=== PATIENT | male | born 1970 | race Caucasian/White ===

== ENCOUNTER → 2019-07-23 12:32 | Outpatient (BNVA) | payer MEDICARE, SELFPAY | PROVIDERS: Family Provider Family Medicine; PCP Family Medicine; Visit Provider Psychiatry & Neurology Psychiatry | DX: R41.9 Unspecified symptoms and signs involving cognitive functions and awareness (principal); F33.42 Major depressive disorder, recurrent, in full remission; F17.210 Nicotine dependence, cigarettes, uncomplicated | CPT/HCPCS: 99213 ==

== ENCOUNTER → 2019-08-08 10:28 | Outpatient (BNVA) | payer MEDICARE, SELFPAY | PROVIDERS: Family Provider Family Medicine; PCP Family Medicine; Visit Provider Anesthesiology | DX: G89.29 Other chronic pain (principal); M79.641 Pain in right hand; M79.642 Pain in left hand; M79.671 Pain in right foot; M79.672 Pain in left foot; M79.674 Pain in right toe(s); M51.16 Intervertebral disc disorders with radiculopathy, lumbar region; G70.9 Myoneural disorder, unspecified; F17.210 Nicotine dependence, cigarettes, uncomplicated; Z79.891 Long term (current) use of opiate analgesic | CPT/HCPCS: 99214 ==

== ENCOUNTER 2019-08-11 07:44 | Day surgery (SDC) | payer MEDICARE, SELFPAY ==
[2019-08-08 10:43] VITALS: BMI 28.8
--- NOTE | 2019-08-11 07:51 | ANES.PREANE2 ---
Pre-Anesthetic Assessment Pre-Anesthetic Assessment: Height/Weight: Height 1.88 m Weight 101.605 kg Preop Diagnosis: Hematochezia Proposed Procedure: Operation Date: 08/11/19 09:30 Proposed Procedures p Colonoscopy 01331 K92.1(Not Applicable) - Diego Villalobos MD Familial anesthetic complications: None Was Beta Lizzy taken within 24 hours: N/A Last intake: NPO > 8 hrs Social: Social History: Tobacco Packs per day: 1-2 cigarettes a month Exam: Pre-Anes Outpt Exam: alert, oriented x 3, clear to auscultation bilaterally and regular rate & rhythm Airway: Cervical ROM: WNL MP: 4 Additional comments: missing front teeth Pulmonary: Pulmonary: None reported CV/HEM: CV/HEM: None reported : : None reported Comments: kidney stones Hepatic: Hepatic: None reported GI: GI: GERD Metabolic: Metabolic: None reported Musc/skel: Musc/skel: Fibromyalgia Comments: hand and foot pain (neuropathy r hand and R foot) Neuropsych: Neuropsych: Neuropathy Anesthetic Plan: ASA status: 2 Anesthesia: MAC Risk of > 500 ml blood loss (7ml/kg in children): No PFSH Anesthesia PFSH: Medical History (Updated 08/08/19 @ 12:02 by Dave Collier MD) Chronic hand pain RIGHT Chronic toe pain, right foot Cigarette nicotine dependence Depression, major, recurrent, in complete remission Encounter for long-term opiate analgesic use Intervertebral disc disorders with radiculopathy, lumbar region Neuromyopathy Unspecified symptoms and signs involving cognitive functions and awareness Social History (Updated 08/08/19 @ 11:13 by Lexii De Jesus LPN) Smoking and tobacco status: current some day smoker cigarettes Quit status (tobacco): not considering quitting Second hand smoke exposure: Yes Alcohol intake: never Marital status: Number of children: 2 History of recent travel: No Current gender identity: Male Data Anesthesia Cardiac Studies: No Data to Display
[2019-08-11 08:23] VITALS: BP 160/102; PULSE 65; RESP 18; TEMP 36.8; O2SAT 94
[2019-08-11] MEDS: sodium chloride 0.9% 1,000 ML 30 ML (08:25)
--- NOTE | 2019-08-11 08:55 | W.PM.OPSUD ---
Surgery/Procedure H&P Update DATE OF PROCEDURE: August 11, 2019 DATE H&P PERFORMED: 08/06/19 PREOP DIAGNOSIS: c PLANNED PROCEDURE: Operation Date: 08/11/19 09:30 Proposed Procedures p Colonoscopy(Not Applicable) - Diego Villalobos MD
[2019-08-11 10:14] VITALS: BP 130/86; PULSE 81; RESP 16; TEMP 37.2; O2SAT 93
[2019-08-11 10:24] VITALS: BP 144/93; PULSE 66; RESP 16; O2SAT 97
[2019-08-11 10:32] VITALS: BP 150/96; PULSE 68; RESP 16; O2SAT 97
== END 2019-08-11 10:45 | disposition home or self-care (01) ==
PROVIDERS: Family Provider Family Medicine; PCP Family Medicine; Visit Provider Internal Medicine
PROC: 0DJD8ZZ Inspection of Lower Intestinal Tract, Via Natural or Artificial Opening Endoscopic (ICD-10-PCS; CPT 45378; principal; 2019-08-11 09:30)
DX: K92.1 Melena (principal); F17.210 Nicotine dependence, cigarettes, uncomplicated; K21.9 Gastro-esophageal reflux disease without esophagitis; M79.7 Fibromyalgia
CPT/HCPCS: 12345; 45378; J2001; J2704; J7030

== ENCOUNTER → 2019-11-11 09:50 | Outpatient (BNVA) | payer MEDICARE, SELFPAY | PROVIDERS: Family Provider Family Medicine; PCP Family Medicine; Visit Provider Anesthesiology | DX: G89.29 Other chronic pain (principal); M79.641 Pain in right hand; M79.642 Pain in left hand; M51.16 Intervertebral disc disorders with radiculopathy, lumbar region; M54.2 Cervicalgia; M79.674 Pain in right toe(s); G70.9 Myoneural disorder, unspecified; Z79.891 Long term (current) use of opiate analgesic | CPT/HCPCS: 99214 ==

== ENCOUNTER → 2019-11-19 07:33 | Outpatient (BNVA) | payer MEDICARE, SELFPAY | PROVIDERS: Family Provider Family Medicine; PCP Family Medicine; Visit Provider Psychiatry & Neurology Psychiatry | DX: F33.42 Major depressive disorder, recurrent, in full remission (principal); R41.9 Unspecified symptoms and signs involving cognitive functions and awareness; F17.210 Nicotine dependence, cigarettes, uncomplicated | CPT/HCPCS: 99213 ==

== ENCOUNTER → 2019-12-30 09:25 | Outpatient (BNVA) | payer MEDICARE, SELFPAY | PROVIDERS: Family Provider Family Medicine; PCP Family Medicine; Visit Provider Anesthesiology | DX: G89.29 Other chronic pain (principal); M79.641 Pain in right hand; M79.642 Pain in left hand; M51.16 Intervertebral disc disorders with radiculopathy, lumbar region; M54.2 Cervicalgia; G70.9 Myoneural disorder, unspecified; Z79.891 Long term (current) use of opiate analgesic | CPT/HCPCS: 99214 ==

== ENCOUNTER → 2020-02-13 07:38 | Outpatient (BNVA) | payer MEDICARE, SELFPAY | PROVIDERS: Family Provider Family Medicine; PCP Family Medicine; Visit Provider Psychiatry & Neurology Psychiatry | DX: F33.42 Major depressive disorder, recurrent, in full remission (principal); R41.9 Unspecified symptoms and signs involving cognitive functions and awareness; F17.210 Nicotine dependence, cigarettes, uncomplicated; F90.2 Attention-deficit hyperactivity disorder, combined type | CPT/HCPCS: 99213 ==

== ENCOUNTER → 2020-03-09 09:11 | Outpatient (BNVA) | payer MEDICARE, SELFPAY | PROVIDERS: Family Provider Family Medicine; PCP Family Medicine; Visit Provider Nurse Practitioner | DX: G89.29 Other chronic pain (principal); M79.641 Pain in right hand; M79.642 Pain in left hand; M51.16 Intervertebral disc disorders with radiculopathy, lumbar region; M54.2 Cervicalgia; G70.9 Myoneural disorder, unspecified; F17.210 Nicotine dependence, cigarettes, uncomplicated; Z79.891 Long term (current) use of opiate analgesic; Z71.6 Tobacco abuse counseling | CPT/HCPCS: 99213 ==

== ENCOUNTER → 2020-04-21 09:58 | Outpatient (BNVA) | payer MEDICARE, SELFPAY | PROVIDERS: Family Provider Family Medicine; PCP Family Medicine; Visit Provider Anesthesiology | DX: G89.29 Other chronic pain (principal); M79.641 Pain in right hand; M79.642 Pain in left hand; M54.2 Cervicalgia; R29.898 Other symptoms and signs involving the musculoskeletal system; M51.16 Intervertebral disc disorders with radiculopathy, lumbar region; G70.9 Myoneural disorder, unspecified; F17.210 Nicotine dependence, cigarettes, uncomplicated; Z79.891 Long term (current) use of opiate analgesic | CPT/HCPCS: 99214 ==

== ENCOUNTER → 2020-05-24 08:18 | Outpatient (BNVA) | payer MEDICARE, SELFPAY | PROVIDERS: Family Provider Family Medicine; PCP Family Medicine; Visit Provider Psychiatry & Neurology Psychiatry | DX: F33.42 Major depressive disorder, recurrent, in full remission (principal); F17.210 Nicotine dependence, cigarettes, uncomplicated; R41.9 Unspecified symptoms and signs involving cognitive functions and awareness | CPT/HCPCS: 99213 ==

== ENCOUNTER 2020-06-09 12:50 | Emergency (ER) | payer MEDICARE, SELFPAY ==
--- NOTE | 2020-06-09 12:54 | XR_ITS ---
WS: [id number] Exam: XR KUB [id number] Date/Time of Exam: 06/09/2020 1:15 PM Reason For Exam: kidney stone Comparison 07/26/2016. No bowel obstruction or free air. Visualized organ margins are intact. Surgical clips in the right lo wer quadrant. Small calcification superimposing left kidney and probably represent renal calculi. Bon y structures are intact. XR/XR KUB [id number] IMPRESSION: 1. No acute abdominal finding. 2. Small calcification superimpose the left kidney and probably represent renal calculi.
[2020-06-09 13:05] VITALS: BP 177/104; PULSE 67; RESP 18; TEMP 36.5; O2SAT 96; BMI 26.2
[2020-06-09 13:09] VITALS: BP 178/114; PULSE 60; RESP 18; O2SAT 96
[2020-06-09 13:39] VITALS: BP 152/88; PULSE 70; RESP 14; O2SAT 94
--- NOTE | 2020-06-09 14:06 | ED_ITS ---
HPI - Abdominal Pain General: Chief Complaint: Abdominal Pain Stated Complaint: kidney stone pain Time Seen by Provider: 06/09/20 13:31 Source: patient and family Mode of arrival: ambulatory Limitations: no limitations History of Present Illness: HPI narrative: 50-year-old male patient presents to the emergency department with acute onset of right flank pain this morning at 4 AM. He reports trying to walk it out. His spouse reports he experienced hematuria last night. Patient reports trying to pass a kidney stone. Has experienced kidney stones in the past. Under the care of Dr. Sharp for kidney stone management. MD elicited complaint: abdominal pain and flank pain (rt) Pertinent past history: kidney stones Onset (ago): day(s) (1) Pain Consistency: intermittent Location: R flank and Pelvis Severity: moderate Quality: stabbing and sharp Radiation: R flank Migration to: suprapubic Exacerbating factors: nothing Associated Symptoms: Reports hematuria, nausea and other (hematuria); Denies chills, constipation, diarrhea, dysuria, fever(s) and vomiting Review of Systems General: Reports: 10 or more systems reviewed and unremarkable except in HPI and below Const: Denies: fever(s), chills, body aches, fatigue, malaise or diaphoresis Eyes: Denies: blurry vision or eye redness ENMT: Denies: throat pain, dental pain or disequilibrium Card: Denies: chest pain, palpitations, irregular heart rhythm, swelling of feet/ankles or dyspnea on exertion Resp: Denies: dyspnea, productive cough, non-productive cough or wheezing GI: Reports: abdominal pain (rt flank) and nausea; Denies: vomiting, diarrhea or constipation : Reports: flank pain and hematuria; Denies: difficulty urinating, dysuria, urinary urgency or difficulty starting urination Musc: Denies: neck pain, back pain or joint pain Skin/Breast: Denies: rash or pruritus Neuro: Denies: headache(s), weakness in extremities or behavioral changes Psych: Denies: anxiety or depression Quincy/Lymph: Denies: easy bruising PFS ED PFSH: Medical History (Updated 06/09/20 @ 16:30 by CELINA Holt) Chronic hand pain RIGHT Chronic toe pain, right foot Cigarette nicotine dependence Depression, major, recurrent, in complete remission Encounter for long-term opiate analgesic use Intervertebral disc disorders with radiculopathy, lumbar region Neuromyopathy Unspecified symptoms and signs involving cognitive functions and awareness Family History Other CAD (coronary artery disease) Cancer Clotting disorder Diabetes Hypertension Stroke Social History Smoking and tobacco status: former smoker Quit status (tobacco): not considering quitting Second hand smoke exposure: Yes Alcohol intake: never Marital status: Number of children: 2 History of recent travel: No Current gender identity: Male Physical Exam Const: COMMON NORMALS: no acute distress, average body habitus, patient oriented x3, healthy appearing, alert and well nourished GENERAL APPEARANCE: cooperative, well kempt, well developed, anxious and well hydrated; not comfortable and not ill appearing NUTRITIONAL APPEARANCE: overweight ORIENTATION/CONSCIOUSNESS: Yes awake, Yes oriented to person, Yes oriented to place and Yes oriented to time HENMT: COMMON NORMALS: normocephalic, atraumatic, Normal external nose present and moist oral mucous membranes HEAD & SCALP: normal to inspection, normocephalic and atraumatic NOSE: Normal external nose present Eye: COMMON NORMALS: Equal, round and reactive pupils present and EOMs intact bilaterally GENERAL EYE: appearance normal, both eyes and all related structures PUPIL: Yes Equal, round and reactive pupils present Neck/C-Spine: COMMON NORMALS: full ROM, no lymphadenopathy and supple GENERAL: Yes normal visual inspection and Yes trachea midline CERVICAL SPINE: Yes cervical ROM normal Lymph: LYMPHATIC: no lymphadenopathy noted Chest: COMMONS NORMALS: normal inspection of the chest and normal palpation of entire chest wall Resp: COMMON NORMALS: normal respiratory effort, No retractions, No use of accessory muscles and clear to auscultation bilaterally EFFORT & INSPECTION: Yes able to speak in complete sentences AUSCULTATION: clear to auscultation bilaterally Cardio: COMMON NORMALS: regular rhythm, S1 normal heart sound present, S2 normal heart sound present and Peripheral pulses 2+ throughout RHYTHM: regular rhythm HEART SOUNDS: S1 normal heart sound present and S2 normal heart sound present PERIPHERAL PULSES: Peripheral pulses 2+ throughout GI: COMMON NORMALS: Normal to inspection, nondistended, normoactive bowel sounds present and Soft to palpation INSPECTION: Yes normal to inspection PALPATION: Yes Soft to palpation, Yes Firmness to palpation present (GI) and Yes Tenderness to palpation present (GI) (rt flank) : BLADDER/KIDNEY EXAM: Yes CVA tenderness on the right Back/Pelvis: COMMON NORMALS: thoracic and lumbar spine normal to inspection Extremity: COMMON NORMALS: normal to inspection and capillary refill normal Neuro: COMMON NORMALS: patient oriented x3 and no focal motor deficits SENSORIUM/ORIENTATION: Yes alert, Yes oriented to person, Yes oriented to place and Yes oriented to time Psych: COMMON NORMALS: mental status grossly normal, Normal thought process present and cooperative APPEARANCE: Yes well kempt ACTIVITY/MOTOR BEHAVIOR: Yes appropriate eye contact THOUGHT PROCESS: Normal thought process present Skin: COMMON NORMALS: no rashes or lesions noted and turgor normal GENERAL SKIN EXAM: no rashes or lesions noted and turgor normal Course Consultations: Consultation #1: Spoke with Dr. Sharp regarding concerning CT findings and 4 mm stone in the proximal ureter. Advised control patient's pain, recommend antibiotics due to elevated white blood count, advised patient to contact office in the morning if pain continues to be problematic during the night, advised n.p.o. after 7 AM for possible stent placement tomorrow morning. Requested PCR screen through [facility] in the event patient does have need for surgical intervention tomorrow. If patient does well, will need follow-up in the office next week. I also discussed with Dr. Sharp findings of right upper lobe liver mass. Pain patient is experiencing today is from 4 mm right proximal stone. Time: 16:15 Vital Signs: Vital signs: Vital Signs Temperature 97.7 F 06/09/20 13:05 Pulse Rate 70 06/09/20 14:09 Respiratory Rate 16 06/09/20 14:09 Blood Pressure 152/88 06/09/20 14:09 Pulse Oximetry 94 06/09/20 14:09 MDM - Abdominal Pain MDM Narrative: Medical decision making narrative: 50-year-old male patient presents to the emergency department with right flank pain. Onset hematuria last night with onset of flank pain this morning. 4 mm stone proximal ureter identified on CT scan completed here today. Also of note was hyperdensity versus mass of the right upper lobe of the liver measuring 2.5 cm. MRI outpatient order completed with referral to delinquency prevention social worker, results will be sent to Dr. Horan, patient's primary care provider. Discussion with the patient regarding abnormality completed. I also discussed my conversation with Dr. Sharp and plan of care with the patient and his spouse. Patient will be started on Cipro due to possible urinary tract infection since white blood count is 14,000. Flomax initiated, additional prescription of Percocet provided as patient is under the care of pain management with Dr. Hogan, increased Percocet dosing will be needed secondary to renal colic. Case discussed with Dr. Desai, ED physician who provided Percocet prescription. Pain was controlled here in the ED with Dilaudid and Zofran. Patient agrees to contact Dr. Sharp's office in the morning with n.p.o. status at 7 AM if worsening symptoms of pain occur. If patient does okay through the night, may follow-up with Dr. Sharp's nurse practitioner next week. Covid screen completed as patient may have surgical intervention tomorrow. Lab Data: Labs: Lab Results 06/09/20 06/09/20 06/09/20 Range/Units 13:18 14:40 14:40 WBC 14.0 H (4.0-10.0) 10^3/ uL RBC 5.31 H (4.1-5.3) 10^6/u L Hgb 15.1 (11.7-16.6) g/dL Hct 46.9 (42.0-52.0) % MCV 88.3 (80-94) fL MCH 28.4 (28.0-34.0) pg MCHC 32.2 (30.0-36.0) g/dL RDW 12.4 (12.1-15.1) % Plt Count 274 (130-400) 10^3/c mm MPV 10.3 (7.4-10.4) fL Neut % (Auto) 87.5 % Lymph % (Auto) 5.3 % Sandoval % (Auto) 6.3 % Eos % (Auto) 0.0 % Baso % (Auto) 0.5 % Neut # (Auto) 12.26 H (1.8-7.7) 10^3/u L Lymph # (Auto) 0.8 (0.8-4.8) 10^3/u L Sandoval # (Auto) 0.9 (0.2-0.9) 10^3/u L Eos # (Auto) 0.0 (0.0-0.8) 10^3/u L Baso # (Auto) 0.1 (0.0-0.1) 10^3/u L Nucleated RBC % (a uto) 0 % Nucleated RBCs # 0.0 /100WBC Sodium 140 (136-145) mmol/L Potassium 4.1 (3.5-5.1) mmol/L Chloride 103 (98-107) mmol/L Carbon Dioxide 25 (22-29) mmol/L Anion Gap 16.1 (5-19) BUN 17 (6-20) mg/dL Creatinine 1.8 H (0.7-1.2) mg/dL GFR Calculation 40.1 L (90-130) mL/min Glucose 125 H (65-115) mg/dL Calculated Osmolal ity 293 (285-295) mOsm/k g Calcium 9.2 (8.5-10.5) mg/dL Total Bilirubin 0.4 (0.15-1.2) mg/dL AST 25 (0-40) U/L ALT 37 (0-41) U/L Alkaline Phosphata se 101 (40-130) IU/L Total Protein 7.1 (6.6-8.7) g/dL Albumin 4.5 (3.5-5.2) g/dL Globulin 2.6 (1.3-4.6) g/dL Urine Color Yellow (Yellow) Urine Appearance Cloudy (CLEAR) Urine pH 5 (5-7) Ur Specific Gravit y 1.025 (1.005-1.030) Urine Protein Trace (Negative) Urine Glucose (UA) Norm (Normal) Urine Ketones 1+ H (Negative) Urine Blood 3+ H (Negative) Urine Nitrate Negative (Negative) Urine Bilirubin Neg (Negative) Urine Urobilinogen Norm (Negative) mg/dL Ur Leukocyte Lisa ase Negative (Negative) Urine RBC 50-80 H (0-2) /hpf Urine WBC None (0-5) /hpf Ur Squamous Epith Cells 0-4 H (0-5) /hpf Amorphous Sediment 4+ /hpf Urine Bacteria 2+ H (NONE) /hpf Imaging Data ^: Other Xray: Radiologist's impression: [address] [address] XRay Report Signed Patient: Reggie Dennis #: [id number] : 1970Acct#:[id number] Age/Sex: 50 / MADM Date: 06/09/20 Loc: ERRoom/Bed: Attending Dr: Ordering Provider/Ordering MD: Rossana Lopez Date of Service: 06/09/20 Procedure(s): XR KUB [id number] Accession Number(s): [id number] Report Number: [id number] WS: [id number] Exam: XR KUB [id number] Date/Time of Exam: 06/09/2020 1:15 PM Reason For Exam: kidney stone Comparison 07/26/2016. No bowel obstruction or free air. Visualized organ margins are intact. Surgical clips in the right lower quadrant. Small calcification superimposing left kidney and probably represent renal calculi. Bony structures are intact. XR/XR KUB [id number] IMPRESSION: 1. No acute abdominal finding. 2. Small calcification superimpose the left kidney and probably represent renal calculi. Dictated By:Juan Ramon Saavedra DO Signed By:Kulwinder Bradshaw Date/Time:06/09/20 1401 DD/ 1400 CT Abd/Pel: Radiologist's impression: [place] [address] CT Scan Report Signed Patient: Reggie Dennis #: [id number] : 1970Acct#:[id number] Age/Sex: 50 / MADM Date: 06/09/20 Loc: ERRoom/Bed: Attending Dr: Ordering Provider/Ordering MD: Rossana Lopez Date of Service: 06/09/20 Procedure(s): CT kidney stone [id number] Accession Number(s): [id number] Report Number: [id number] PROCEDURE INFORMATION: Exam: CT Abdomen And Pelvis Without Contrast Exam date and time: 06/09/2020 2:33 PM Age: 50 years old Clinical indication: Abdominal pain; Flank; Right; Additional info: Kidney stone (rt flank pain) TECHNIQUE: Imaging protocol: Computed tomography of the abdomen and pelvis without contrast. Radiation optimization: All CT scans at this facility use at least one of these dose optimization techniques: automated exposure control; mA and/or kV adjustment per patient size (includes targeted exams where dose is matched to clinical indication); or iterative reconstruction. COMPARISON: CT Abdomen/Pelvis Renal [id number] 02/04/2018 4:43 PM RADIATION DOSE METRICS: Total DLP (mGy-cm): 1824.4 FINDINGS: Liver: Hepatic steatosis. Relatively hyperdense region versus mass in the right lobe of the liver estimated at 2.5 cm (series 602, image 34). Gallbladder and bile ducts: Unremarkable. No ductal dilation. Pancreas: Normal. No ductal dilation. Spleen: Normal. No splenomegaly. Adrenal glands: Normal. No mass. Kidneys and ureters: 4 mm proximal right ureteral calculus located approximately at the level of the L 3 4 interspace. Minimal right hydronephrosis and right perinephric edema. Bilateral renal calculi. Stomach and bowel: No acute findings. No obstruction. No mucosal thickening. Appendix: Appendectomy. Intraperitoneal space: Unremarkable. No free air. No significant fluid collection. Vasculature: No abdominal aortic aneurysm. Lymph nodes: No significant adenopathy. Urinary bladder: Unremarkable as visualized. Reproductive: Unremarkable as visualized. Bones/joints: No acute findings. Soft tissues: Unremarkable. CT/CT kidney stone [id number] IMPRESSION: 4 mm proximal right ureteral calculus, right hydronephrosis. Bilateral renal calculi. Hepatic steatosis, possible right lobe liver lesion. Recommend follow-up multiphasic contrast enhanced MRI or multiphasic contrast enhanced CT. Radiation Dose CTDIVOL = (mGy): DLP = 1824.4 (mGy-cm) Dictated By:Chacho Johnson MD Signed By:Chacho Johnsonigned Date/Time:06/09/20 1523 Discharge Plan Discharge Patient Disposition: Home Clinical Impression: Renal lithiasis, Liver mass, right lobe, Flank pain, acute Condition: Stable Prescriptions: New Percocet 10-325 mg tablet 1 tab PO Q4H PRN (Reason: pain) Qty: 14 RF: 0 Flomax 0.4 mg capsule 0.4 mg PO Q24H Qty: 20 RF: 0 ciprofloxacin HCl 500 mg tablet 500 mg PO BID Qty: 20 RF: 0 Zofran 4 mg tablet 4 mg PO Q4H 5 Days Qty: 14 RF: 0 No Action pantoprazole 40 mg tablet,delayed release (DR/EC) 40 mg PO DAILY Qty: 90 RF: 3 oxycodone-acetaminophen [Percocet] 10-325 mg tablet 1 tab PO .5 times a day PRN (Reason: pain) 30 Days Qty: 150 RF: 0 oxycodone-acetaminophen [Percocet] 10-325 mg tablet 1 tab PO .5 times a day PRN (Reason: pain) 30 Days Qty: 150 RF: 0 buspirone 30 mg tablet 30 mg PO BID Qty: 60 RF: 11 mirtazapine 45 mg tablet 45 mg PO DAILY Qty: 30 RF: 11 Discharge Orders: Discharge ED (Routine); Ordered 06/09/20 Ordered By: Rossana Lopez Referrals: Jann Horan MD [Primary Care Provider] - Discharge Diet: Usual diet Discharge Activity: Resume usual activity Patient Instructions: Kidney Stones (ED), How to Strain Your Urine (ED), Abdominal Pain (ED), Flank Pain (ED) Activity Restrictions/Additional Instructions: Push fluids, drink lots of fluids Start Flomax tomorrow, 06/10/2020, you have received your first dose here in the ED If you continue to have severe pain during the night, you will need to refrain from eating or drinking after 7 AM. You will then need to call Dr. Sharp's office at 8 AM to let them know you are not better. Further instruction will then be given to you. Covid testing was completed today due to potential surgical intervention that may be needed tomorrow. Take Cipro until gone, even if feeling better If you are better, you will need a follow-up appointment with Dr. Sharp's office next week. automotive services manager will call and schedule you an appointment for next week. MRI will be needed of your liver, delinquency prevention social worker will be contacting you with an appointment of your MRI. Results will be sent to Dr. Horan's office, your primary care provider, follow-up will be needed. Coding Level of Care Code ED [employer] for Andreina Fwd Exam Comprehensive
[2020-06-09 14:09] VITALS: BP 152/88; PULSE 70; RESP 16; O2SAT 94
--- NOTE | 2020-06-09 14:11 | CTR_ITS ---
PROCEDURE INFORMATION: Exam: CT Abdomen And Pelvis Without Contrast Exam date and time: 06/09/2020 2:33 PM Age: 50 years old Clinical indication: Abdominal pain; Flank; Right; Additional info: Kidney stone (rt flank pain) TECHNIQUE: Imaging protocol: Computed tomography of the abdomen and pelvis without contrast. Radiation optimization: All CT scans at this facility use at least one of these dose optimization techniques: automated exposure control; mA and/or kV adjustment per patient size (includes targeted exams where dose is matched to clinical indication); or iterative reconstruction. COMPARISON: CT Abdomen/Pelvis Renal [id number] 02/04/2018 4:43 PM RADIATION DOSE METRICS: Total DLP (mGy-cm): 1824.4 FINDINGS: Liver: Hepatic steatosis. Relatively hyperdense region versus mass in the right lobe of the liver estimated at 2.5 cm (series 602, image 34). Gallbladder and bile ducts: Unremarkable. No ductal dilation. Pancreas: Normal. No ductal dilation. Spleen: Normal. No splenomegaly. Adrenal glands: Normal. No mass. Kidneys and ureters: 4 mm proximal right ureteral calculus located approximately at the level of the L 3 4 interspace. Minimal right hydronephrosis and right perinephric edema. Bilateral renal calculi. Stomach and bowel: No acute findings. No obstruction. No mucosal thickening. Appendix: Appendectomy. Intraperitoneal space: Unremarkable. No free air. No significant fluid collection. Vasculature: No abdominal aortic aneurysm. Lymph nodes: No significant adenopathy. Urinary bladder: Unremarkable as visualized. Reproductive: Unremarkable as visualized. Bones/joints: No acute findings. Soft tissues: Unremarkable. CT/CT kidney stone [id number] IMPRESSION: 4 mm proximal right ureteral calculus, right hydronephrosis. Bilateral renal calculi. Hepatic steatosis, possible right lobe liver lesion. Recommend follow-up multiphasic contrast enhanced MRI or multiphasic contrast enhanced CT. Radiation Dose CTDIVOL = (mGy): DLP = 1824.4 (mGy-cm)
[2020-06-09] MEDS: ondansetron 2 mg/ML SDV 2 mL 4 MG IVP (14:54)
[2020-06-09] MEDS: morphine 4 mg/mL SDV 1 mL IVP (14:58)
[2020-06-09 15:06] LABS: Basophils # 0.1 10^3/uL (0.0-0.1); Basophils % 0.5 %; Hematocrit 46.9 % (42.0-52.0); Hemoglobin 15.1 g/dL (11.7-16.6); Lymphocytes # 0.8 10^3/uL (0.8-4.8); Lymphocytes % 5.3 %; Mean Corpuscular HGB Conc 32.2 g/dL (30.0-36.0); Mean Corpuscular Hemoglobin 28.4 pg (28.0-34.0); Mean Corpuscular Volume 88.3 fL (80-94); Mean Platelet Volume 10.3 fL (7.4-10.4); Monocytes # 0.9 10^3/uL (0.2-0.9); Monocytes % 6.3 %; Neutrophils # 12.26 10^3/uL (1.8-7.7); Neutrophils % 87.5 %; Nucleated Red Blood Cells % 0 %; Platelet Count 274 10^3/cmm (130-400); Red Blood Count 5.31 10^6/uL (4.1-5.3); Red Cell Distribution Width 12.4 % (12.1-15.1)
[2020-06-09 15:22] LABS: Albumin Level 4.5 g/dL (3.5-5.2); Alkaline Phosphatase 101 IU/L (40-130); Anion Gap 16.1 (5-19); Aspartate Amino Transferase 25 U/L (0-40); Blood Urea Nitrogen 17 mg/dL (6-20); Calcium 9.2 mg/dL (8.5-10.5); Carbon Dioxide 25 mmol/L (22-29); Chloride 103 mmol/L (98-107); Globulin 2.6 g/dL (1.3-4.6); Glomerular Filtration Rate 40.1 mL/min (90-130); Glucose 125 mg/dL (65-115); Osmolality Calculated 293 mOsm/kg (285-295); Potassium 4.1 mmol/L (3.5-5.1); Sodium 140 mmol/L (136-145); Total Bilirubin 0.4 mg/dL (0.15-1.2); Total Protein 7.1 g/dL (6.6-8.7)
[2020-06-09 15:34] LABS: Add Urine Microscopic? YES; Bilirubin Urine Neg (Negative); Blood Urine 3+ (Negative); Glucose Urine UA Norm (Normal); Ketones Urine 1+ (Negative); Leukocyte Esterase Urine Negative (Negative); Nitrate Urine Negative (Negative); Protein Urine Trace (Negative); Specific Gravity, Urine 1.025 (1.005-1.030); Urine Appearance Cloudy (CLEAR); Urine Color Yellow (Yellow); Urobilinogen Urine Norm (Negative); pH Urine 5 (5-7)
[2020-06-09 15:39] LABS: Bacteria Urine 2+ /hpf; RBC Urine 50-80 /hpf (0-2); Squamous Epithelial Cell Urine 0-4 /hpf (0-5)
[2020-06-09 15:40] LABS: Add Urine Culture? Yes; Amorphous Sediment Urine 4+ /hpf
[2020-06-09] MEDS: HYDROmorphone 1 mg/mL INJ 1 mL 0.5 MG IVP ×2 (15:46→16:57)
[2020-06-09 17:21] LABS: Alanine Aminotransferase 37 U/L (0-41)
--- NOTE | 2020-06-10 08:51 | DCPLANNER ---
catering operations manager had message to schedule a follow up appointment for patient with Dr. Sharp. catering operations manager called the office of Dr. Sharp, spoke with Geni, gave clinic patients information. catering operations manager was told that patients information would be printed and reviewed. Clinic will call patient with appointment information.
--- NOTE | 2020-06-14 11:34 | DCPLANNER ---
homeowner association manager had message to schedule a follow up, out patient MRA / MRI. homeowner association manager faxed order to centralized scheduling, will call for appointment information.
--- NOTE | 2020-06-14 14:03 | DCPLANNER ---
quality assurance practice manager called the office of Dr. Sharp to confirm that a follow up appointment had been scheduled for patient. quality assurance practice manager spoke with Alissa, was told that clinic called and spoke with patients . A message was left for patient to call clinic and schedule a follow up appointment.
--- NOTE | 2020-06-22 08:41 | DCPLANNER ---
Patient had an MRI/MRA scheduled for 06.22.20 - patient did attend appointment.
== END 2020-06-09 17:32 | disposition home or self-care (01) ==
PROVIDERS: Emergency Provider Nurse Practitioner Family; PCP Family Medicine
DX: N20.0 Calculus of kidney (principal); R16.0 Hepatomegaly, not elsewhere classified; Z87.891 Personal history of nicotine dependence
CPT/HCPCS: 12345; 74018; 74176; 80053; 81001; 85025; 87086; 96374; 96375; 96376; 99283; J1170; J2270; J2405

== ENCOUNTER → 2020-06-16 16:07 | Outpatient (BNVA) | payer MEDICARE, SELFPAY | PROVIDERS: PCP Family Medicine; Visit Provider Nurse Practitioner Family | DX: N20.0 Calculus of kidney (principal) | CPT/HCPCS: 88300 ==

== ENCOUNTER 2020-06-22 08:27 | Outpatient (CLI) | payer MEDICARE, SELFPAY ==
--- NOTE | 2020-06-22 08:39 | MR_ITS ---
WS: [id number] INDICATION: Possible liver lesion TECHNIQUE: MRI of the abdomen without and with gadolinium enhancement. Axial T2, axial T2 fiesta, cor onal 2-D fiesta, axial T1 fat sat, and post gadolinium imaging was obtained. FINDINGS: CT June 09, 2020 reviewed. Diffuse fatty infiltration right hepatic lobe. Previously described le michelle in the right hepatic lobe likely represents focal fatty sparing with geographic perfusion. No santos spicious lesions. Tiny cyst undersurface right hepatic lobe measuring 4 mm. No intrahepatic biliary d uctal dilatation. Normal pancreas. Normal pancreatic head. Normal common bile duct. Normal pancreatic duct. Adrenal gla nds are normal. Small 8 mm right adrenal adenoma. Tiny left renal cyst. Normal spleen. Normal GE junction. No hydronephrosis in either kidney. MR/MR abdomen wo/w con* [id number] IMPRESSION: 1. Diffuse fatty infiltration of the right hepatic lobe. 2. No suspicious hepatic lesions. Previously described lesion seen on CT likel y due to focal fatty sparing. 3. No intrahepatic biliary ductal dilatation. 4. Normal gallbladder. 5. 8 mm adrenal adenoma. 6. No other significant findings.
== END 2020-06-22 08:28 | disposition home or self-care (01) ==
LOC: RADSHAW 08:30
PROVIDERS: PCP Family Medicine; Visit Provider Nurse Practitioner Family
DX: K76.9 Liver disease, unspecified (principal); D35.00 Benign neoplasm of unspecified adrenal gland; K76.0 Fatty (change of) liver, not elsewhere classified
CPT/HCPCS: 74183; A9579

== ENCOUNTER 2020-07-06 07:58 | Outpatient (CLI) | payer MEDICARE, SELFPAY ==
[2020-07-06 09:13] LABS: Alanine Aminotransferase 39 U/L (0-41); Albumin Level 4.8 g/dL (3.5-5.2); Alkaline Phosphatase 108 IU/L (40-130); Anion Gap 13.6 (5-19); Aspartate Amino Transferase 27 U/L (0-40); Blood Urea Nitrogen 15 mg/dL (6-20); Calcium 10.6 mg/dL (8.5-10.5); Carbon Dioxide 28 mmol/L (22-29); Chloride 100 mmol/L (98-107); Globulin 3.2 g/dL (1.3-4.6); Glomerular Filtration Rate 58.4 mL/min (90-130); Glucose 119 mg/dL (65-115); Osmolality Calculated 286 mOsm/kg (285-295); Potassium 4.6 mmol/L (3.5-5.1); Sodium 137 mmol/L (136-145); Total Bilirubin 0.3 mg/dL (0.15-1.2)
[2020-07-08 20:39] LABS: Plasma Renin Activity LC/MS/MS 3.35 ng/mL/h (0.25-5.82)
== END 2020-07-06 07:59 | disposition home or self-care (01) ==
PROVIDERS: PCP Family Medicine; Visit Provider Family Medicine
DX: E27.8 Other specified disorders of adrenal gland (principal); K76.0 Fatty (change of) liver, not elsewhere classified
CPT/HCPCS: 36415; 80053; 82088; 84244

== ENCOUNTER → 2020-07-07 07:37 | Outpatient (BNVA) | payer MEDICARE, SELFPAY | PROVIDERS: PCP Family Medicine; Visit Provider Psychiatry & Neurology Psychiatry | DX: F33.42 Major depressive disorder, recurrent, in full remission (principal); F17.210 Nicotine dependence, cigarettes, uncomplicated; R41.9 Unspecified symptoms and signs involving cognitive functions and awareness | CPT/HCPCS: 99214 ==

== ENCOUNTER → 2020-07-09 07:58 | Outpatient (BNVA) | payer MEDICARE, SELFPAY | PROVIDERS: PCP Family Medicine; Visit Provider Anesthesiology | DX: M54.2 Cervicalgia (principal); R29.898 Other symptoms and signs involving the musculoskeletal system; Z79.891 Long term (current) use of opiate analgesic | CPT/HCPCS: 99213 ==

== ENCOUNTER → 2020-09-01 07:33 | Outpatient (BNVA) | payer MEDICARE, SELFPAY | PROVIDERS: PCP Family Medicine; Visit Provider Psychiatry & Neurology Psychiatry | DX: F33.42 Major depressive disorder, recurrent, in full remission (principal); F17.210 Nicotine dependence, cigarettes, uncomplicated; R41.9 Unspecified symptoms and signs involving cognitive functions and awareness | CPT/HCPCS: 99213 ==

== ENCOUNTER → 2020-09-09 08:54 | Outpatient (BNVA) | payer MEDICARE, SELFPAY | PROVIDERS: PCP Family Medicine; Visit Provider Anesthesiology | DX: G89.29 Other chronic pain (principal); M79.641 Pain in right hand; G70.9 Myoneural disorder, unspecified; R29.898 Other symptoms and signs involving the musculoskeletal system; F17.210 Nicotine dependence, cigarettes, uncomplicated; Z79.891 Long term (current) use of opiate analgesic | CPT/HCPCS: 99213 ==

== ENCOUNTER → 2020-10-29 08:04 | Outpatient (BNVA) | payer MEDICARE, SELFPAY | PROVIDERS: PCP Family Medicine; Visit Provider Psychiatry & Neurology Psychiatry | DX: F33.42 Major depressive disorder, recurrent, in full remission (principal); F17.210 Nicotine dependence, cigarettes, uncomplicated; R41.9 Unspecified symptoms and signs involving cognitive functions and awareness | CPT/HCPCS: 99213 ==

== ENCOUNTER → 2020-11-11 10:27 | Outpatient (BNVA) | payer MEDICARE, SELFPAY | PROVIDERS: PCP Family Medicine; Visit Provider Anesthesiology | DX: G89.29 Other chronic pain (principal); M79.641 Pain in right hand; M79.642 Pain in left hand; R29.898 Other symptoms and signs involving the musculoskeletal system; G70.9 Myoneural disorder, unspecified; Z87.891 Personal history of nicotine dependence; Z79.891 Long term (current) use of opiate analgesic | CPT/HCPCS: 99213 ==

== ENCOUNTER → 2021-01-05 10:48 | Outpatient (BNVA) | payer MEDICARE, SELFPAY | PROVIDERS: PCP Family Medicine; Visit Provider Anesthesiology | DX: G89.29 Other chronic pain (principal); M51.16 Intervertebral disc disorders with radiculopathy, lumbar region; M79.641 Pain in right hand; M79.642 Pain in left hand; M79.671 Pain in right foot; M79.672 Pain in left foot; R29.898 Other symptoms and signs involving the musculoskeletal system; M79.674 Pain in right toe(s); G70.9 Myoneural disorder, unspecified; F17.210 Nicotine dependence, cigarettes, uncomplicated; Z79.891 Long term (current) use of opiate analgesic | CPT/HCPCS: 99214 ==

== ENCOUNTER → 2021-03-08 07:52 | Outpatient (BNVA) | payer MEDICARE, SELFPAY | PROVIDERS: PCP Family Medicine; Visit Provider Anesthesiology | DX: G89.29 Other chronic pain (principal); M51.16 Intervertebral disc disorders with radiculopathy, lumbar region; M79.641 Pain in right hand; M79.642 Pain in left hand; R29.898 Other symptoms and signs involving the musculoskeletal system; G70.9 Myoneural disorder, unspecified; Z87.891 Personal history of nicotine dependence; Z79.891 Long term (current) use of opiate analgesic | CPT/HCPCS: 99214 ==

== ENCOUNTER → 2021-04-06 07:39 | Outpatient (BNVA) | payer MEDICARE, SELFPAY | PROVIDERS: PCP Family Medicine; Visit Provider Psychiatry & Neurology Psychiatry | DX: F33.42 Major depressive disorder, recurrent, in full remission (principal); F17.210 Nicotine dependence, cigarettes, uncomplicated; R41.9 Unspecified symptoms and signs involving cognitive functions and awareness | CPT/HCPCS: 99214 ==

== ENCOUNTER → 2021-06-30 07:06 | Outpatient (BNVA) | payer MEDICARE, SELFPAY | PROVIDERS: PCP Family Medicine; Visit Provider Psychiatry & Neurology Psychiatry | DX: F33.42 Major depressive disorder, recurrent, in full remission (principal); F17.210 Nicotine dependence, cigarettes, uncomplicated; R41.9 Unspecified symptoms and signs involving cognitive functions and awareness | CPT/HCPCS: 99213 ==

== ENCOUNTER 2021-07-20 12:19 | Outpatient (CLI) | payer MEDICARE, SELFPAY ==
--- NOTE | 2021-07-20 12:32 | CT_ITS ---
WS: [id number] CT ABDOMEN NON-CONTRAST PLUS CONTRAST TECHNIQUE: Noncontrast CT of the abdomen and contrast-enhanced CT of the abdomen with coronal and sag ittal reformatted images with 15 minute delayed images. Adrenal protocol utilized. CLINICAL INFORMATION: ADRENAL INCIDENTALOMA COMPARISON: MRI June 22, [address] June 09, 2020, October 28 7018 September 2013 and August 2013 DLP: 2408.[address] scans at [facility] use at least one of these dose optimization techniques: automated e xposure control; mA and/or kV adjustment per patient size (includes targeted exams where dose is matc hed to clinical indication); or iterative reconstruction. FINDINGS: Again seen is the low-attenuation 12mm RIGHT adrenal lesion unchanged compared to the recent prior st udies. This is also stable since 2014. This demonstrates imaging characteristics compatible with adre nal adenoma. Calculated adrenal washout characteristics are compatible with adenoma. LEFT adrenal gland is normal. Diffuse fatty infiltration of the liver. Lung bases are well aerated. N ormal portal vein and splenic vein. Normal spleen. Small esophageal hiatal hernia. Normal caliber abdominal aorta. Celiac and SMA are patent. Tiny fat-containing umbilical hernia. LEFT renal pelvic calculus measuring 7 mm with mild LEFT pelvocaliectasis and proximal ureterectasis. Inf lammatory stranding about the LEFT proximal ureter. No significant obstruction on the delayed images. Normal LEFT ureteral excretion. Additional smaller calyceal tip calculi. Tiny proteinaceous or hemor rhagic LEFT renal cyst unchanged. No abdominal lymphadenopathy. CT/CT abdomen wo/w con [id number] IMPRESSION: 1. 12 mm RIGHT adrenal lesion with washout characteristics compatible with adr enal adenoma unchanged since 2013. 2. LEFT adrenal gland is normal. 3. Partially obstructing LEFT renal pelvic calculus measuring 7 mm appears new from the prior examinations with mild LEFT pelvocaliectasis and ureterectasis. Inflammatory stranding about the LEFT proximal ureter. LEFT ureteral excretion appears normal on the delayed images. Normal LEFT nephrogram. 4. Normal bilateral renal parenchymal enhancement. 5. No other significant changes compared to the prior examinations.
[2021-07-20] MEDS: iohexol 300 mg/mL 100 mL Btl IV (12:55)
== END 2021-07-20 12:20 | disposition home or self-care (01) ==
LOC: RAD 12:26
PROVIDERS: PCP Family Medicine; Visit Provider Family Medicine
DX: E27.8 Other specified disorders of adrenal gland (principal); N20.0 Calculus of kidney; N13.4 Hydroureter
CPT/HCPCS: 74170

== ENCOUNTER → 2021-08-25 11:01 | Outpatient (BNVA) | payer MEDICARE, SELFPAY | PROVIDERS: PCP Family Medicine; Visit Provider Nurse Practitioner | DX: G70.9 Myoneural disorder, unspecified (principal); R73.9 Hyperglycemia, unspecified; K21.9 Gastro-esophageal reflux disease without esophagitis | CPT/HCPCS: 80053; 82607; 83036; 83735 ==

== ENCOUNTER → 2021-08-30 11:10 | Outpatient (BNVA) | payer MEDICARE, SELFPAY | PROVIDERS: PCP Family Medicine; Visit Provider Nurse Practitioner | DX: M79.671 Pain in right foot (principal); G89.29 Other chronic pain | CPT/HCPCS: 73630 ==

== ENCOUNTER → 2021-09-29 07:15 | Outpatient (BNVA) | payer MEDICARE, SELFPAY | PROVIDERS: PCP Family Medicine; Visit Provider Psychiatry & Neurology Psychiatry | DX: F33.42 Major depressive disorder, recurrent, in full remission (principal); F17.210 Nicotine dependence, cigarettes, uncomplicated; R41.9 Unspecified symptoms and signs involving cognitive functions and awareness | CPT/HCPCS: 99214 ==

== ENCOUNTER 2021-10-03 11:57 | Outpatient (CLI) | payer MEDICARE, SELFPAY ==
--- NOTE | 2021-10-03 12:14 | XR_ITS ---
WS: [id number] KUB, AP view, 10/03/2021 Clinical Data: STONES Comparison: KUB, 06/09/2020. Findings: There are calcifications overlying the inferior pole of the left kidney and a calcification to the le ft of the L2-3 disc interspace which could be in the left renal pelvis. The kidneys are obscured by overlying bowel gas. There are right-sided surgical clips. XR/XR KUB [id number] Impression: Left renal calcifications.
== END 2021-10-03 11:58 | disposition home or self-care (01) ==
LOC: RAD 12:00
PROVIDERS: PCP Family Medicine; Visit Provider Urology
DX: N20.0 Calculus of kidney (principal)
CPT/HCPCS: 74018; 81003

== ENCOUNTER 2021-10-05 05:44 | Day surgery (SDC) | payer MEDICARE, SELFPAY ==
[2021-10-04 12:41] VITALS: BMI 26.2
[2021-10-05] VITALS (13 sets, daily range): BP systolic 138–158; BP diastolic 100–122; PULSE 59–76; RESP 16–18; TEMP 36.2–36.7; O2SAT 92–99
--- NOTE | 2021-10-05 | SCC_ITS ---
Procedure done: 1. Cystoscopy with left retrograde 2. Left ureterorenoscopy, laser lithotripsy ureteral and renal calculi stent (7 Hungarian by 30 cm double-pigtail) 69.4 seconds of fluoroscopic guidance, for a cumulative dose of 16.59 mGy, was provided to Dr. Sharp by the radiology department. C-arm images of the abdomen were saved for the patient's permanent record. [facility]
--- NOTE | 2021-10-05 05:43 | W.PM.OPSUD ---
Surgery/Procedure H&P Update DATE OF PROCEDURE: October 05, 2021 DATE H&P PERFORMED: 10/04/19 H&P UPDATE INFORMATION: I have reviewed H&P completed within last 30 days, I have examined patient prior to procedure, No changes to prior documentation and H&P is in [facility] EMR on date indicated PREOP DIAGNOSIS: c PLANNED PROCEDURE: Operation Date: 10/05/21 07:00 Proposed Procedures p cystoscopy 05159/87508 mod 26/n20.1(Not Applicable) - Russel Sharp MD s Retrograde Pyelogram(Left) - MD roverto Etienne Laser Lithotripsy(Left) - MD roverto Etienne Ureteroscopy(Left) - MD roverto Etienne Ureteral Stent Placement(Left) - Russel Sharp MD
--- NOTE | 2021-10-05 05:56 | SC_ITS ---
WS: [id number] Left ureteral stent placement, 10/05/2021 Clinical Data: Left ureteral calculus preop Comparison: None. Findings: Dr. Sharp placed a left ureteral stent. SC/C-arm [place] for Urology Impression: Left ureteral stent placement.
--- NOTE | 2021-10-05 05:56 | XR_ITS ---
WS: [id number] KUB, AP view, 10/05/2021 Clinical Data: Left ureteral calculus preop Comparison: KUB, 10/03/2021. Findings: There are calcifications over lying the left kidney. There is still a 1.0 cm calcification to the lef t of the L3 vertebral body which may be in the left renal pelvis. Fecal material and gas obscure detail over both kidneys. Right side surgical clips are seen. XR/XR KUB [id number] Impression: No change in left renal calcifications.
--- NOTE | 2021-10-05 06:37 | P.ANESASSM_ITS ---
Pre-Anesthetic Assessment Height/Weight: Height 1.91 m Weight 95.254 kg Temp Pulse Resp BP Pulse Ox 97.2 F L 65 18 155/122 95 10/05/21 06:27 10/05/21 06:27 10/05/21 06:27 10/05/21 06:27 10/05/21 06:27 Preop Diagnosis: LEFT UPJ stone Operation Date: 10/05/21 07:00 Proposed Procedures p cystoscopy 69146/42904 mod 26/n20.1(Not Applicable) - Russel Sharp MD s Retrograde Pyelogram(Left) - MD roverto Etienne Laser Lithotripsy(Left) - MD roverto Etienne Ureteroscopy(Left) - Russel Sharp MD s Ureteral Stent Placement(Left) - Russel Sharp MD Familial anesthetic complications: None Was Beta Lizzy taken within 24 hours: N/A Was Clonidine taken within 24 hours: N/A Last intake: Intake Last Liquid Date 10/04/21 Last Liquid Time 22:00 Last Solid Date 10/04/21 Last Solid Time 17:00 Social No alcohol and No tobacco Exam alert, oriented x 3, clear to auscultation bilaterally and regular rate & rhythm Airway Submandibular: Other (< 2 finger breadths ) Cervical ROM: within normal limits Mallampati: Class III Dentition: chipped Comments: Comments: missing upper teeth, very poor dentition History/ROS No significant complaints Pulmonary None reported CV/HEM Hypertension METS > 4 None reported Hepatic None reported GI Gastroesophageal Reflux Disease (well controlled ) Metabolic None reported Musc/skel Osteoarthritis/DJD and None reported Neuropsych Depression and Neuropathy (Hx of neuromyopathy) Anesthetic Plan ASA status: 2 Anesthesia: Anesthesia Evaluation and General Other: We discussed risk and benefits of general anesthesia including PONV, sore throat (sometimes severe), corneal abrasion, positioning and peripheral nerve injuries, life threatening allergic reaction, post operative ICU admission requiring prolonged intubation, stroke, heart attack, , and rare incidences of recall. Patient consents to proceed with general anesthesia. Risk of > 500 ml blood loss (7ml/kg in children): No Medications/Allergies Home Medications Medication Instructions Recorded Confirmed Last Taken Type vitamin E (dl, acetate) 180 mg 400 unit PO BID cap 07/09/20 10/05/21 10/04/21 History (400 unit) capsule pantoprazole 40 mg tablet,delayed 40 mg PO DAILY #90 tab 02/08/21 10/05/21 10/04/21 Rx release buspirone 30 mg tablet 30 mg PO BID #60 tab 06/20/21 10/05/21 10/04/21 Rx mirtazapine 45 mg tablet 45 mg PO DAILY #30 tab 06/20/21 10/05/21 10/04/21 Rx Lactobacillus rhamnosus GG 20 See Rx Instructions PO .2 times 08/25/21 10/05/21 10/04/21 Rx billion cell capsule (Probiotic day #60 cap [facility]) magnesium oxide 500 mg tablet 500 mg PO BID #60 tab 08/25/21 10/05/21 10/04/21 Rx zonisamide 50 mg capsule 50 mg PO TID #90 cap 08/25/21 10/05/21 10/04/21 Rx Allergies Allergy/AdvReac Type Severity Reaction Status Date / Time No Known Allergies Allergy Verified 10/03/21 13:10 [facility] Anesthesia Medical History Chronic hand pain RIGHT and left Chronic toe pain, right foot Cigarette nicotine dependence Depression, major, recurrent, in complete remission Encounter for long-term opiate analgesic use Intervertebral disc disorders with radiculopathy, lumbar region Neuromyopathy Psychiatric care Unspecified symptoms and signs involving cognitive functions and awareness Family History Mother , at age 77 CHF (congestive heart failure) COPD (chronic obstructive pulmonary disease) Father Pacemaker Other CAD (coronary artery disease) Cancer Clotting disorder Diabetes Hypertension Stroke Social History Smoking and tobacco status: former smoker Second hand smoke exposure: Yes Smoking risk assessment/counseling performed?: Yes Tobacco counseling given: provider counseling, support medications and counseling >3 minutes Alcohol intake: never Desire information about alcohol rehabilitation?: No Counseling given: No Desire information about substance/drug rehabilitation?: No Counseling given: No Adopted: No Caregiver/support person: Yes Lives independently: Yes Household members: spouse Housing: House Marital status: Number of children: 2 service: No Current occupational status: disabled History of recent travel: No Current gender identity: Male Data Anesthesia Cardiac Studies: No Data to Display
--- NOTE | 2021-10-05 06:42 | PM.OP ---
Operative Report Date of procedure: October 05, 2021 Pre-op diagnosis: large obstructing left UPJ stone Multiple left renal calculi Post-op diagnosis: large obstructing left UPJ stone Multiple left renal calculi Procedure done: 1. Cystoscopy with left retrograde 2. Left ureterorenoscopy, laser lithotripsy ureteral and renal calculi stent (7 Finnish by 30 cm double-pigtail) Implants: Left ureteral stent (7 Finnish by 30 cm double-pigtail no string) Specimens removed/disposition: Stone fragments/sand Pathology: Stone fragments Surgeon: Aron Anesthesia: General Estimated blood loss: Minimal Urine output: Not measured Complications: None Findings: Stone identified in the expected position No other ureteral stone seen on the retrograde ureteropyelogram Brief History: Reggie is a very pleasant 51-year-old white male with a history of stones treated previously with combination treatment. Presented back to the clinic recently with complaints of left renal colic. KUB showed persistence of a large left UPJ stone that was originally identified in July [address] scan. He was also known to have at least a couple other stones in the left kidney. Pelvis was not included in that CT scan but there is no evidence of ureteral dilation below the UPJ to at least the iliac crest. Stone was felt to be too large to pass and he was provided multiple options including ESWL versus endoscopy. He elected endoscopy due to earlier access to the operating room. Admitted now for that procedure. Benefits and risk thoroughly discussed. Discussed potential staged procedure if access to the stone was difficult at first attempt with ureteroscopy Procedure: After routine preoperative evaluation examination and obtaining of informed consent he was taken to the operating suite on 10/05/2021 where general anesthesia was administered without difficulty after appropriate timeout was performed, SCDs confirmed to be functioning, preoperative antibiotics administered, beta-mike protocol confirmed. Prepped and draped in the usual sterile fashion in dorsolithotomy position paying careful attention to avoiding pressure points. 21 Finnish cystoscope with 30 degree lens was introduced into urethra meatus and advanced into the bladder under videoscopy. Bladder was systematically examined and found to be within normal limits. An 8 Finnish cone-tip catheter was intubated into the left ureteral orifice for left retrograde ureteropyelogram demonstrating: Normal course and caliber of the ureter up to the UPJ where a large filling defect was identified consistent with a stone seen on previous CT scan and KUBs. A flexible tip guidewire was then advanced up the left ureter easily bypassing the stone. The distal ureter was then dilated with a 15 Finnish 4 cm balloon. A second guidewire was then passed without difficulty next to the first wire. The first wire was secured to the drapes as a safety wire. The second wire was utilized as a working wire. The 7.5 Finnish offset ureteroscope was then advanced over the working wire of the left ureter. The ureter was inspected and the scope was passable to the level of the stone. The scope was removed the wire left in place and a 38 cm ureteral access sheath was then advanced to the hub which was several centimeters below the stone. The 7.5 Finnish offset ureteroscope was then advanced through the sheath to just below the stone. Contrast was injected through the scope to show the calyces. The stone which was fragmented with a 365 ?m thulium superpulse laser fiber. About three quarters of the stone was fragmented to mostly sand and very tiny particles. The remaining quarter migrated into the renal pelvis. In its new position the stone cannot be accessed with a straight scope and therefore it was exchanged for a flexible ureteroscope which easily access the stone in the remaining piece that had migrated into the renal pelvis was fragmented both in the renal pelvis and some particles in the calyceal system. At this point 2 additional stone areas which had been located on the CT scan previously were targeted and the stones were fragmented as well. Final inspection revealed no substantial fragments only sand-like particles. The ureter was carefully inspected after the sheath was pulled back onto the hub of the scope. The ureter was in good shape. The cystoscope was then backloaded over the guidewire and a 7 Finnish by 30 cm double-pigtail stent was advanced over the guidewire through the cystoscope into appropriate position as confirmed via fluoroscopy and cystoscopy. The bladder was drained. The stent was confirmed to be functioning. There was some minor oozing around the ureteral orifice mucosa. Nothing severe Tolerated the procedure well without complications. Awakened in the operating room and returned to the PACU in stable condition. PLANS: 1. Anticipate discharge from outpatient surgery 2. Maintain stent for approximately 1 week. Follow-up in my office about that time for a KUB probable stent removal
[2021-10-05] MEDS: fentaNYL 50 mcg/mL INJ 2mL IVP (06:50)
[2021-10-05] MEDS: sodium chloride 0.9% 1,000 ML 30 ML IV (07:13)
[2021-10-05] MEDS: levofloxacin-dextrose 5 % 500 MG/100 ML PREMIX 100 MG IV (07:37)
[2021-10-05] MEDS: iohexol 300 mg/mL 50 mL Btl (OR ONLY) XX (08:05)
[2021-10-05] MEDS: labetalol 5 mg/mL SDV 20mL IVP ×2 (09:25→09:54)
--- NOTE | 2021-10-05 10:13 | PC.NURSE ---
This RN spoke with Radha from Urology clinic to set up an appointment for patient prior to discharge. Radha reported that the office will call patient to make appointment. Radha took patients name and . Information passed along to patient. Urology clinics number given to patient.
--- NOTE | 2021-10-05 13:40 | ANE.PACU2 ---
Inpatient post-anesthesia follow up: Airway intact: Yes Vital signs: Temperature 97.8 F Pulse Rate 75 Respiratory Rate 16 Blood Pressure 156/109 Pulse Oximetry 96 Oxygen Delivery Me thod Room Air Oxygen Flow Rate 2 Fraction of Inspir ed Oxygen Hydration adequate: Yes Nausea and vomiting: No Pain level: 2 Mental status: Baseline
[2021-10-10 22:22] LABS: Stone Source LEFT URETER
== END 2021-10-05 10:29 | disposition home or self-care (01) ==
PROVIDERS: PCP Nurse Practitioner; Visit Provider Urology
PROC: 0TJB8ZZ Inspection of Bladder, Via Natural or Artificial Opening Endoscopic (ICD-10-PCS; CPT 52000; principal; 2021-10-05 07:00)
PROC: (CPT 74420; 2021-10-05 07:00)
PROC: (CPT 52356; 2021-10-05 07:00)
PROC: 0TJ98ZZ Inspection of Ureter, Via Natural or Artificial Opening Endoscopic (ICD-10-PCS; CPT 52351; 2021-10-05 07:00)
PROC: (CPT 50605; 2021-10-05 07:00)
DX: N20.2 Calculus of kidney with calculus of ureter (principal); Z87.891 Personal history of nicotine dependence
CPT/HCPCS: 52356; 74018; 76000; 82365; 88300; C2625; J0330; J1100; J1956; J2370; J2405; J2704; J2710; J3010; J3490; J7030

== ENCOUNTER 2021-10-11 13:30 | Outpatient (CLI) | payer MEDICARE, SELFPAY ==
--- NOTE | 2021-10-11 13:35 | XRR_ITS ---
PROCEDURE INFORMATION: Exam: XR Abdomen Exam date and time: 10/11/2021 1:34 PM Age: 51 years old Clinical indication: Renal calculus. Stent placement. Urolithiasis. TECHNIQUE: Imaging protocol: XR of the abdomen. Views: Frontal supine view of the abdomen. 1 View. COMPARISON: CR XR KUB [id number] 10/05/2021 5:58 AM FINDINGS: Tubes, catheters and devices: A left ureteral stent appears grossly appropriately position. Gastrointestinal tract: Nonspecific bowel gas pattern. Intraperitoneal space: Surgical clips in the right abdomen. Organs: There is a 1 cm calcification adjacent to the proximal left ureteral stent that likely represents the known obstructive stone in the left renal pelvis or proximal ureter. Additional, known left renal stones are not well seen secondary to overlying enteric gas. Bones/joints: No gross acute fracture. XR/XR KUB [id number] IMPRESSION: 1. A left ureteral stent appears grossly appropriately position. 2. One centimeter calcification adjacent to the proximal left ureteral stent that likely represents the known obstructive stone in the left renal pelvis or proximal ureter. Additional, known left renal stones are not well seen secondary to overlying enteric gas.
== END 2021-10-11 13:31 | disposition home or self-care (01) ==
PROVIDERS: PCP Nurse Practitioner; Visit Provider Urology
DX: N20.9 Urinary calculus, unspecified (principal); Z96.0 Presence of urogenital implants; N20.0 Calculus of kidney; N20.1 Calculus of ureter
CPT/HCPCS: 52310; 74018; 81003

== ENCOUNTER → 2021-11-16 09:37 | Outpatient (BNVA) | payer MEDICARE, SELFPAY | PROVIDERS: PCP Nurse Practitioner; Visit Provider Psychiatry & Neurology Psychiatry | DX: F33.42 Major depressive disorder, recurrent, in full remission (principal) | CPT/HCPCS: 99215 ==

== ENCOUNTER 2022-01-19 14:01 | Outpatient (CLI) | payer MEDICARE, SELFPAY ==
--- NOTE | 2022-01-19 12:30 | XR_ITS ---
WS: [id number] XR KUB [id number] REASON FOR EXAM: UROLITHIASIS FINDINGS: Compared to 10/11/2021, the left ureteral stent has been removed. The left ureteral calculus in the left intrarenal calculi identified on the abdomen film of 10/05/2021 are no longer identifiable. No other urinary tract calculi are identified. XR/XR KUB [id number] IMPRESSION: No urinary tract calculi are identified.
== END 2022-01-19 14:02 | disposition home or self-care (01) ==
LOC: RAD 14:02
PROVIDERS: PCP Nurse Practitioner; Visit Provider Urology
DX: N20.9 Urinary calculus, unspecified (principal)
CPT/HCPCS: 74018; 81003; 99213

== ENCOUNTER → 2022-02-08 15:32 | Outpatient (BNVA) | payer MEDICARE, SELFPAY | PROVIDERS: PCP Nurse Practitioner; Visit Provider Podiatrist Foot & Ankle Surgery | DX: M72.2 Plantar fascial fibromatosis (principal) | CPT/HCPCS: 73630; 99213 ==

== ENCOUNTER 2022-02-08 16:21 | Outpatient (CLI) | payer MEDICARE, SELFPAY | END 2022-02-08 16:22 | disposition home or self-care (01) | LOC: SPT 16:22 | PROVIDERS: PCP Nurse Practitioner; Visit Provider Podiatrist Foot & Ankle Surgery | DX: Z46.89 Encounter for fitting and adjustment of other specified devices (principal); M72.2 Plantar fascial fibromatosis | CPT/HCPCS: 97760; 99214; L4397 ==

== ENCOUNTER → 2022-06-14 09:36 | Outpatient (BNVA) | payer MEDICARE, SELFPAY | PROVIDERS: PCP Nurse Practitioner; Visit Provider Nurse Practitioner | DX: Z13.6 Encounter for screening for cardiovascular disorders (principal); F33.42 Major depressive disorder, recurrent, in full remission; E27.8 Other specified disorders of adrenal gland | CPT/HCPCS: 80053; 80061; 84443; 85025 ==

== ENCOUNTER 2022-07-24 08:33 | Outpatient (CLI) | payer MEDICARE, SELFPAY ==
[2022-07-24] MEDS: iohexol 350 mg/mL 500 mL Btl (per mL) PO (08:47)
--- NOTE | 2022-07-24 12:00 | CT_ITS ---
WS: [id number] CT ABDOMEN AND PELVIS NONCONTRAST HISTORY: E27.8 - Other specified disorders of adrenal gland TECHNIQUE: Imaging performed through the abdomen and pelvis. Coronal and sagittal reformats are submi tted. All CT scans at [facility] use at least one of these dose optimization techniques: auto mated exposure control; mA and/or kV adjustment per patient size (includes targeted exams where dose is matched to clinical indication); or iterative reconstruction. DLP: 583.33 mGy.cm COMPARISON: 07/20/2021, 06/09/2020. Lower thorax: Lung bases are clear. Visualized heart is normal. Small hiatal hernia. Liver: Normal size liver. No mass or bile duct dilatation. Gallbladder: Normal gallbladder. Pancreas: Normal size and attenuation. Normal pancreatic duct. No pancreatitis or mass. Spleen: Normal. Adrenal glands: No change in appearance of the adrenal glands. 10 mm low-attenuation nodule RIGHT adr enal gland has been previously imaged and found to be a benign adenoma. Very minimal hyperplasia LEFT adrenal gland. Right kidney: Normal size kidney. No obstruction. There are a few very tiny, less than 2 mm, calcific ations in the renal pelvis. No ureteral obstruction. Left kidney: Normal size kidney. 5 mm hyperechoic cortical nodule is stable, probably representing a hemorrhagic cyst. Nonobstructing calcifications in the renal pelvis. The burden of calcifications is decreased as compared to 07/20/2021. No hydronephrosis. No ureteral calcification identified. Aorta: Mild atherosclerosis abdominal aorta with no aneurysm. No free fluid, intraperitoneal air or significant lymphadenopathy. GI tract: Stomach is markedly distended. Oral contrast distends the stomach. A large amount of materi al within the stomach surrounded by oral contrast. No obstruction. No small bowel obstruction. Modera te diffuse constipation. Prior appendectomy. Abdominal wall: Negative. No hernia. Pelvis: Normal. Osseous structures: Unremarkable. CT/CT abdomen pelvis wo con [id number] IMPRESSION: 1. Bilateral nonobstructing renal calculi. Calcific burden in the LEFT kidney has decreased since 07/20/2021. 2. Prior appendectomy. 3. Distended stomach with large amount of food products. May be due to recent meal or gastroparesis. There is no obstruction. 4. Diffuse moderate constipation. 5. Stable bilateral adrenal glands. Small previously described and evaluated R IGHT adrenal adenoma. No further workup necessary.
== END 2022-07-24 08:34 | disposition home or self-care (01) ==
LOC: RAD 08:37
PROVIDERS: PCP Nurse Practitioner; Visit Provider Nurse Practitioner
DX: E27.8 Other specified disorders of adrenal gland (principal); N20.0 Calculus of kidney; Q42.8 Congenital absence, atresia and stenosis of other parts of large intestine; K59.00 Constipation, unspecified
CPT/HCPCS: 74176; Q9967

== ENCOUNTER → 2022-07-25 12:58 | Outpatient (BNVA) | payer MEDICARE, SELFPAY | PROVIDERS: PCP Nurse Practitioner; Visit Provider Podiatrist Foot & Ankle Surgery | DX: M72.2 Plantar fascial fibromatosis (principal) | CPT/HCPCS: 20550 ==

== ENCOUNTER 2022-08-01 07:39 | Outpatient (CLI) | payer MEDICARE, SELFPAY ==
--- NOTE | 2022-08-01 07:48 | XR_ITS ---
WS: [email or web address] Exam: XR KUB [id number] Date/Time of Exam: 08/01/2022 7:52 AM Reason For Exam: Urolithiasis No bowel obstruction or free air. No sign of organ enlargement. Surgical clips in the right abdomen a nd pelvis. Nonspecific pelvic calcifications. Bony structures are intact. XR/XR KUB [id number] IMPRESSION: 1. No acute finding.
== END 2022-08-01 07:40 | disposition home or self-care (01) ==
LOC: RAD 07:43
PROVIDERS: PCP Nurse Practitioner; Visit Provider Urology
DX: N20.9 Urinary calculus, unspecified (principal)
CPT/HCPCS: 74018; 81003; 99213

== ENCOUNTER 2022-08-07 09:58 | Outpatient (CLI) | payer MEDICARE, SELFPAY ==
[2022-08-07 11:35] LABS: Anion Gap 15.2 (5-19); Blood Urea Nitrogen 17 mg/dL (6-20); Calcium 9.3 mg/dL (8.5-10.5); Carbon Dioxide 24 mmol/L (22-29); Chloride 105 mmol/L (98-107); Glomerular Filtration Rate 63.6 mL/min (90-130); Glucose 112 mg/dL (65-115); Osmolality Calculated 292 mOsm/kg (285-295); Phosphorus 2.5 mg/dL (2.5-4.5); Potassium 4.2 mmol/L (3.5-5.1); Sodium 140 mmol/L (136-145); Uric Acid 5.3 mg/dL (3.4-7.0)
[2022-08-12 19:44] LABS: Calcium-Oxalate 1.68 (<2.00); Uric Stone 0.44 (<2.00); Urine Ammonia 24 Hour 22 mEq/day (14-62); Urine Citric Acid 24 Hour 192 mg/day (>320); Urine PH 24 Hour 6.7 (5.5-7.0); Urine Phosphorus 24 Hour 789 mg/day (<1100); Urine Potassium 24 Hour 32 mEq/day (19-135); Urine Sulfate 24 Hour 10 mmol/day (<30)
== END 2022-08-07 09:59 | disposition home or self-care (01) ==
PROVIDERS: PCP Nurse Practitioner; Visit Provider Urology
DX: N20.9 Urinary calculus, unspecified (principal); Z79.899 Other long term (current) drug therapy
CPT/HCPCS: 36415; 80048; 81003; 82131; 82140; 82340; 82436; 82507; 82570; 83735; 83935; 84100; 84300; 84550

== ENCOUNTER → 2022-08-31 11:03 | Outpatient (BNVA) | payer MEDICARE, SELFPAY | PROVIDERS: PCP Nurse Practitioner; Visit Provider Podiatrist Foot & Ankle Surgery | DX: M72.2 Plantar fascial fibromatosis (principal) | CPT/HCPCS: 20550; 99213 ==

== ENCOUNTER → 2022-11-16 15:45 | Outpatient (BNVA) | payer MEDICARE, SELFPAY | PROVIDERS: PCP Nurse Practitioner; Visit Provider Urology | DX: N20.9 Urinary calculus, unspecified (principal); N39.9 Disorder of urinary system, unspecified | CPT/HCPCS: 81003; 99213 ==

== ENCOUNTER → 2023-05-14 15:58 | Outpatient (BNVA) | payer MEDICARE, SELFPAY | PROVIDERS: PCP Nurse Practitioner; Visit Provider Nurse Practitioner | DX: K21.9 Gastro-esophageal reflux disease without esophagitis (principal); Z13.6 Encounter for screening for cardiovascular disorders | CPT/HCPCS: 80053; 80061; 85025 ==

== ENCOUNTER → 2023-06-20 07:49 | Outpatient (BNVA) | payer MEDICARE, SELFPAY | PROVIDERS: PCP Nurse Practitioner; Visit Provider Podiatrist Foot & Ankle Surgery | DX: M72.2 Plantar fascial fibromatosis (principal) | CPT/HCPCS: 20550; J1100; J3301; J3490 ==

== ENCOUNTER → 2023-08-16 09:57 | Outpatient (BNVA) | payer MEDICARE, SELFPAY | PROVIDERS: PCP Nurse Practitioner; Visit Provider Nurse Practitioner Family | DX: D22.5 Melanocytic nevi of trunk (principal); L81.4 Other melanin hyperpigmentation; L82.1 Other seborrheic keratosis; L82.0 Inflamed seborrheic keratosis; D48.5 Neoplasm of uncertain behavior of skin; Z80.8 Family history of malignant neoplasm of other organs or systems | CPT/HCPCS: 11102; 17110; 99213 ==

== ENCOUNTER → 2024-02-05 13:23 | Outpatient (BNVA) | payer MEDICARE, SELFPAY | PROVIDERS: PCP Nurse Practitioner; Visit Provider Nurse Practitioner | DX: Z12.5 Encounter for screening for malignant neoplasm of prostate (principal); E78.2 Mixed hyperlipidemia | CPT/HCPCS: 80053; 80061; 84443; G0103 ==

== ENCOUNTER → 2024-02-19 10:10 | Outpatient (BNVA) | payer MEDICARE, SELFPAY | PROVIDERS: PCP Nurse Practitioner; Visit Provider Nurse Practitioner Family | DX: D48.5 Neoplasm of uncertain behavior of skin (principal); L82.0 Inflamed seborrheic keratosis; L81.4 Other melanin hyperpigmentation; L57.8 Other skin changes due to chronic exposure to nonionizing radiation; D22.5 Melanocytic nevi of trunk | CPT/HCPCS: 11102; 17110; 99213 ==

== ENCOUNTER → 2024-07-24 13:52 | Outpatient (BNVA) | payer MEDICARE, SELFPAY | PROVIDERS: PCP Nurse Practitioner; Visit Provider Nurse Practitioner | DX: E78.2 Mixed hyperlipidemia (principal) | CPT/HCPCS: 80053; 80061 ==

== ENCOUNTER → 2024-10-28 15:50 | Outpatient (BNVA) | payer MEDICARE, SELFPAY | PROVIDERS: PCP Nurse Practitioner; Visit Provider Nurse Practitioner Family | DX: L57.8 Other skin changes due to chronic exposure to nonionizing radiation (principal); X32.XXXA Exposure to sunlight, initial encounter; L81.4 Other melanin hyperpigmentation; L82.0 Inflamed seborrheic keratosis; R23.8 Other skin changes; L29.89 Other pruritus; R20.9 Unspecified disturbances of skin sensation; R20.8 Other disturbances of skin sensation; L53.8 Other specified erythematous conditions | CPT/HCPCS: 17110; 99213 ==

== ENCOUNTER → 2025-01-01 11:43 | Outpatient (BNVA) | payer MEDICARE, SELFPAY | PROVIDERS: PCP Nurse Practitioner; Visit Provider Nurse Practitioner | DX: E78.2 Mixed hyperlipidemia (principal) | CPT/HCPCS: 80053; 80061 ==

== ENCOUNTER → 2025-02-18 10:29 | Outpatient (BNVA) | payer MEDICARE, SELFPAY | PROVIDERS: PCP Nurse Practitioner; Visit Provider Nurse Practitioner Family | DX: L81.4 Other melanin hyperpigmentation (principal); L57.8 Other skin changes due to chronic exposure to nonionizing radiation; Z80.8 Family history of malignant neoplasm of other organs or systems; B07.8 Other viral warts; R23.8 Other skin changes; B78.9 Strongyloidiasis, unspecified; L53.8 Other specified erythematous conditions | CPT/HCPCS: 17110; 99213 ==